=== PATIENT | female | born 2000 | race Caucasian/White ===

== ENCOUNTER 2021-03-28 19:12 | Observation (INO) | payer OTHER, SELFPAY ==
--- NOTE | 2021-03-28 19:12 | OBADM ---
This patient, Catina Garibay, admitted to the OB room [facility] for observation. Patient/family oriented to hospital policies and general routines including ID bracelet, bed and alarms, visiting hours, pain management, procedures, bathroom and other care routines, personal items, smoking policy, room service/diet, and visiting hours. Patient/Family are encouraged to report perceived risks to care and to ask questions if they do not understand what they are told or what they should do.
--- NOTE | 2021-03-28 19:35 | PC.NURSE ---
pt reports she is from out of town visiting with her parents. Pt states she has a previous delivery at 33 weeks. Pt main complaint is decreased FM over the last day. Pt also has had chest pain today around 0800 and says its related to the hole in her heart that they discovered early in this . Pt states that is to be looked at once she delivers this baby.
[2021-03-28 19:43] VITALS: BP 98/61; PULSE 80
[2021-03-28 20:00] VITALS: BP 102/62; PULSE 84
--- NOTE | 2021-03-28 20:08 | PC.NURSE ---
Dr. Juarez, walk in doctor, notified of pt and is aware of pt history. Baby has reactive tracing and one contractions noted on the monitor. Larry aware of pt heart history as well. Order received to check pt and if cervix is closed pt can be discharged.
--- NOTE | 2021-04-03 07:34 | PM.OBTRLD ---
OB - Triage/Final Diagnosis Visit Information Comments/Additional reasons for admission: I have assessed the risk for this patient, Catina Garibay, and determined that she would benefit from observation care. Final Diagnosis (1) Decreased movement: Code(s): O36.8190 - Decreased movements, unspecified trimester, not applicable or unspecified Status: Acute
== END 2021-03-28 20:29 | disposition home or self-care (01) ==
PROVIDERS: Admitting Provider Obstetrics & Gynecology; Visit Provider Obstetrics & Gynecology
DX: O36.8120 Decreased fetal movements, second trimester, not applicable or unspecified (principal); Z3A.26 26 weeks gestation of pregnancy
CPT/HCPCS: G0378; G0379

== ENCOUNTER 2021-05-09 19:16 | Observation (INO) | payer OTHER, SELFPAY ==
[2021-05-09] VITALS (15 sets, daily range): BP systolic 100; BP diastolic 58; PULSE 80–96; RESP 16; O2SAT 99–100; BMI 23.4
[2021-05-09 20:22] LABS: Add Urine Microscopic? YES; Appearance Urine Cloudy (Clear); Bacteria Urine 1+ /hpf; Bilirubin Urine Negative (Negative); Blood Urine Negative (Negative); Color Urine Yellow (Yellow); Glucose Urine UA Negative (Negative); Ketones Urine Negative (Negative); Leukocyte Esterase Ur 3+ LEU/UL (NEGATIVE); Mucus Urine Rare /lpf; Nitrate Urine Negative (Negative); Protein Urine Negative (Negative); Specific Grav Ur 1.008 (1.001-1.035); Squamous Epithelial Cell Urine Many /hpf (Few); Urobilinogen Urine Negative mg/dL (<2.0); WBC Urine 31-50 /hpf (0-3)
--- NOTE | 2021-05-09 20:40 | PC.NURSE ---
Upon pt discharge instruction, told patient we are sending her to ED for chest pain evaluation. pt states she would like to go home because the chest pain is not new and always deal with it. Pt states she will try pepcid to see if it makes better but if it doesn't, she will go to ED. This RN strongly suggested to go ED but she feels okay to go home. PT's father was bedside and states that she is 20 and adult so she can made her own decision. Instruction given to come back if her chest pain gets worsen or has sharp pain on abdomen. keep eye on baby movement. Pt verbalized understanding.
--- NOTE | 2021-05-09 20:52 | PC.NURSE ---
Addendum entered by Naz Rust RN 05/09/21 21:00: this note was entered for 05/09/21 at 2035 Original Note: called Dr. Juarez notified walk in patient with chest pain and short of breath, also fell and hit stomach.PT has Medical condition of hole in her heart , no contractions and abdomen is soft. no pain or tenderness with touch on uterine. gestational age appropriate tracing with good acceleration. order received to send pt to ED for chest pain evaluation
--- NOTE | 2021-05-09 21:01 | PC.NURSE ---
called Dr. Juarez notified pt left to home without evaluated in ED. Dr. Juarez was made aware of pt statement this is not new pain and always deal with it. if it doesn't get better, i will come back
--- NOTE | 2021-05-11 10:38 | PM.OBTRLD ---
OB - Triage/Final Diagnosis Visit Information Comments/Additional reasons for admission: I have assessed the risk for this patient, Catina Garibay, and determined that she would benefit from observation care. Evaluation Laboratory results: Laboratory Tests 05/09/21 19:45 Urine Color Yellow Urine Appearance Cloudy H Urine pH 7.0 Ur Specific [place] 1.008 Urine Protein Negative Urine Glucose (UA) Negative Urine Ketones Negative Ur Blood (Man) Negative Urine Nitrate Negative Urine Bilirubin Negative Urine Urobilinogen Negative Ur Leukocyte Esterase 3+ H Urine RBC 3-5 H Urine WBC 31-50 H Ur Squamous Epith Cells Many H Urine Bacteria 1+ H Hyaline Casts 1-2 Urine Mucus Rare Final Diagnosis (1) Traumatic injury during : Code(s): O9A.219 - Injury, poisoning and certain other consequences of external causes complicating , unspecified trimester Status: Acute
== END 2021-05-09 20:40 | disposition home or self-care (01) ==
PROVIDERS: Admitting Provider Obstetrics & Gynecology; Visit Provider Obstetrics & Gynecology
DX: O99.891 Other specified diseases and conditions complicating pregnancy (principal); R07.89 Other chest pain; R06.02 Shortness of breath; W19.XXXA Unspecified fall, initial encounter; Z3A.31 31 weeks gestation of pregnancy
CPT/HCPCS: 59025; 81001; G0378; G0379

== ENCOUNTER 2024-03-11 14:44 | Emergency (ER) | payer OTHER, SELFPAY ==
--- NOTE | ~2024-03-11 | XR_ITS ---
EXAMINATION: XR chest 2V 03/11/2024 15:37 INDICATION: Cough. History of pneumonia and bronchitis. PROCEDURE: 2 view chest COMPARISON: No prior studies for comparison. FINDINGS: The lungs are clear. The cardiomediastinal silhouette is within normal limits. There are no pleural effusions. There is no pneumothorax suspected. IMPRESSION: 1: NO ACUTE CARDIOPULMONARY DISEASE. Reviewed, dictated and finalized at location B.
[2024-03-11 15:05] VITALS: BP 109/65; PULSE 69; RESP 16; TEMP 36.7; O2SAT 99
--- NOTE | 2024-03-11 15:21 | ED.URI ---
HPI - URI/Sore Throat General Chief Complaint: Upper Respiratory Infection Stated Complaint: burn on leg and upper respiratory infection Time Seen by Provider: 03/11/24 15:21 Source: patient Mode of arrival: ambulatory Limitations: no limitations History of Present Illness HPI Narrative: 23-year-old female presents with complaint of cough and chest congestion for 3 weeks. Patient vapes daily. Saw her primary care physician for same complaints and was prescribed Augmentin for upper respiratory infection. Patient reports no improvement cough. Reports shortness of breath with exertion. Afebrile. Patient also has burn to right anterior thigh. Patient drop curling iron on her leg approximately 5 days ago. Has been applying Neosporin. All systems reviewed and negative except as noted above. Related Data Home Medications Medication Instructions Recorded Confirmed bupropion HCl 150 mg 24 hr tablet, mg PO 03/11/24 extended release buspirone 5 mg tablet mg 03/11/24 Allergies Allergy/AdvReac Type Severity Reaction Status Date / Time banana Allergy Swelling Verified 03/11/24 15:15 prochlorperazine AdvReac Anxiety Verified 05/09/21 20:14 [From Compazine] Review of Systems Review of Systems: CONSTITUTIONAL: Denies fever, chills, or sweats. EYES: Denies visual changes, redness, or discharge. ENT: Denies rhinorrhea, congestion, sore throat, or otalgia. CARDIOVASCULAR: Denies chest pain, palpitations, or edema. RESPIRATORY: Reports cough and dyspnea with exertion. GASTROINTESTINAL: Denies abdominal pain, nausea, vomiting, or diarrhea. GENITOURINARY: Denies dysuria or hematuria. SKIN: Denies rash or itching. reports burn wound to right thigh. MUSCULOSKELETAL: Denies back pain, joint pain, or myalgia. NEUROLOGIC: Denies headache, numbness, or weakness. PSYCHIATRIC: Denies anxiety or depression. All other systems reviewed are negative, except as documented in HPI. PMFSH Comments At time of signature, agree with nursing past medical, surgical, social and family history. There is no relevant family history pertinent to the presenting complaint. Exam Narrative: GENERAL: This is a well-nourished, well-developed patient, in no apparent distress. HEAD: normocephalic, atraumatic. EYES: PERRL. Sclera clear/white. Vision is grossly intact. EARS: External ears normal, auditory canals clear and without drainage, TMs normal without perforation. Hearing grossly intact. NOSE: External nose normal with no obvious nasal discharge, nares without redness, no rhinorrhea. THROAT: Mucous membranes moist, posterior pharynx clear. NECK: Neck supple, non-tender without lymphadenopathy, masses or thyromegaly. CARDIOVASCULAR: Regular rate and rhythm without murmurs, gallops, or rubs. RESPIRATORY: mildly decreased to right lung field otherwise clear. Breath sounds equal bilaterally. No wheezes, rales, or rhonchi. SKIN: warm, Dry, intact with no suspicious lesions or rash, good texture and turgor. burn wound to anterior aspect mid thigh approximately 3 x 5 cm with erythema. No drainage. NEURO: awake, alert, and oriented to person, place and time. There were no obvious focal neurologic abnormalities. EXTREMITIES: No joint tenderness, effusion, or edema noted. No calf tenderness. Negative Homans sign bilaterally. BACK: Nontender without deformity. No CVA tenderness. Course Course Level of Care: Express Care Visit Vital Signs Vital signs: Vital Signs Temperature 36.7 C 03/11/24 15:05 Pulse Rate 69 03/11/24 15:05 Respiratory Rate 16 03/11/24 15:05 Blood Pressure 109/65 03/11/24 15:05 Pulse Oximetry 99 03/11/24 15:05 Oxygen Delivery Room Air 03/11/24 15:05 Temperature 36.7 C 03/11/24 15:05 Pulse Rate 69 03/11/24 15:05 Respiratory Rate 16 03/11/24 15:05 Blood Pressure 109/65 03/11/24 15:05 Pulse Oximetry 99 03/11/24 15:05 Oxygen Delivery Room Air 03/11/24 15:05 Reviewed
== END 2024-03-11 16:00 | disposition home or self-care (01) ==
PROVIDERS: Emergency Provider Nurse Practitioner Family; PCP Family Medicine Adolescent Medicine
DX: J20.9 Acute bronchitis, unspecified (principal); T24.211A Burn of second degree of right thigh, initial encounter; X19.XXXA Contact with other heat and hot substances, initial encounter
CPT/HCPCS: 71046; 99213; G0463